=== PATIENT | female | born 1930 | race Caucasian/White ===

== ENCOUNTER 2017-05-06 05:16 | Emergency (ER) | payer OTHER, MEDICAID ==
[2017-05-06] MEDS: LEVALBUTEROL (NEB) 1.25 MG/0.5 ML AMP INH (05:25)
[2017-05-06] MEDS: IPRATROPIUM (NEB) 0.5 MG/2.5 ML AMP INH (05:26)
== END 2017-05-06 07:00 | disposition home or self-care (01) ==
LOC: E/R 05:16
DX: R06.02 Shortness of breath (principal); I10 Essential (primary) hypertension; J45.909 Unspecified asthma, uncomplicated; Z96.641 Presence of right artificial hip joint
CPT/HCPCS: 71045; 93005; 94644; 99284-25

== ENCOUNTER 2017-09-14 16:27 | Inpatient (IN) | payer OTHER, MEDICAID ==
[2017-09-14 16:40] LABS: ADD MAN DIFF? NO
[2017-09-14] MEDS: FUROSEMIDE 40 MG INJ IV (16:45)
[2017-09-14] MEDS: NITROGLYCERIN 2% 1 GM OINT PKT TD (16:45)
[2017-09-14 16:46] LABS: BASOPHIL # 0.1 10^3/ul (0.0-0.1); BASOPHILS % 1.1 % (0.0-2.0); EOSINOPHILS # 0.5 10^3/ul (0.0-0.5); EOSINOPHILS % 4.1 % (0.0-7.0); HEMATOCRIT 43.3 % (37.0-47.0); HEMOGLOBIN 13.7 g/dl (12.0-16.0); LYMPHOCYTES # 0.7 10^3/ul (0.8-2.9); LYMPHOCYTES % 6.4 % (15.0-51.0); MEAN CORPUSCULAR HEMOGLOBIN 31.4 pg (29.0-33.0); MEAN CORPUSCULAR HGB CONC 31.6 g/dl (32.0-37.0); MEAN CORPUSCULAR VOLUME 99.1 fl (82.0-101.0); MEAN PLATELET VOLUME 10.7 fl (7.4-10.4); MONOCYTE # 0.1 10^3/ul (0.3-0.9); MONOCYTES % 1.2 % (0.0-11.0); NEUTROPHIL # 9.8 10^3/ul (1.6-7.5); NEUTROPHILS % 86.6 % (39.0-77.0); PLATELET COUNT 303 10^3/UL (140-415); RED BLOOD COUNT 4.37 10^6/ul (4.20-5.40); RED CELL DISTRIBUTION WIDTH 13.2 % (11.5-14.5)
[2017-09-14 16:46] LABS: WHITE BLOOD COUNT 11.3 10^3/ul (4.8-10.8)
[2017-09-14] MEDS ORDERED: NITROGLYCERIN (SL) 0.4 MG TAB SL (17:00)
[2017-09-14 17:07] LABS: ANION GAP 19 (8-16); BLOOD UREA NITROGEN 16 mg/dl (7-20); CALCIUM 9.1 mg/dl (8.4-10.2); CARBON DIOXIDE 29 mmol/L (21-31); CHLORIDE 101 mmol/L (97-110); GLUCOSE 144 mg/dl (70-220); POTASSIUM 3.2 mmol/L (3.5-5.1); SODIUM 146 mmol/L (135-144)
[2017-09-14] MEDS: LEVALBUTEROL (NEB) 1.25 MG/0.5 ML AMP HHN ×2 (17:09→18:38)
[2017-09-14] MEDS: IPRATROPIUM (NEB) 0.5 MG/2.5 ML AMP HHN (17:09)
[2017-09-14 17:18] LABS: TROPONIN-I 0.024 ng/ml (0.000-0.120)
[2017-09-14] MEDS: METHYLPREDNISOLONE 125 MG INJ IV (18:42)
[2017-09-14] MEDS: POTASSIUM CHLORIDE (SR) 20 MEQ TAB PO (19:21)
[2017-09-14] MEDS: MAGNESIUM SULFATE 2 GM/50 ML 50 ML IVPB (19:21)
[2017-09-14] MEDS: ONDANSETRON 4 MG INJ IV (20:01)
[2017-09-14 20:52] LABS: AADO2 Arterial 152.7 mmHg (7.0-24.0); Arterial Base Excess -1.4 mmol/L (-3.0-3); Arterial Blood Gas Oxygen Sat 96.5 mmHG (95.0-100.0); Arterial COHb 0.2 % (0.0-3.0); Arterial HCO3 23.6 mmol/L (22.0-26.0); Arterial MetHb 0.3 % (0.0-1.5); Arterial Total Hemglobin 14.4 g/dl (12.0-18.0); Arterial pCO2 40.7 mmhg (35-45); MODE HFNC; Site Right Brachial
[2017-09-14] MEDS ORDERED: ACETAMINOPHEN 325 MG TAB PO (21:00)
[2017-09-14 23:33] LABS: CREATINE KINASE 101 IU/L (23-200)
[2017-09-14 23:45] LABS: CK INDEX 8.1; CK-MB 8.19 ng/ml (0.0-2.4)
[2017-09-14 23:48] LABS: TROPONIN-I 0.496 ng/ml (0.000-0.120)
[2017-09-15] MEDS ORDERED: ASPIRIN (EC) 325 MG TAB PO (00:41)
[2017-09-15] MEDS: CLOPIDOGREL 75 MG TAB PO (00:57)
[2017-09-15] MEDS: ALBUTEROL HFA 8 GM INHALER INH ×2 (01:00→04:41)
[2017-09-15] MEDS ORDERED: NACL 0.9% 3 ML SYG IV (01:00)
[2017-09-15] MEDS ORDERED: ACETAMINOPHEN 325 MG TAB PO (01:00)
[2017-09-15] MEDS ORDERED: NITROGLYCERIN (SL) 0.4 MG TAB SL (01:00)
[2017-09-15] MEDS ORDERED: ONDANSETRON 4 MG INJ IV ×2 (01:00→10:00)
[2017-09-15] MEDS: ALBUTEROL/IPRATROPIUM (NEB) 3 ML AMP HHN ×5 (01:22→19:54)
[2017-09-15 05:38] LABS: ADD MAN DIFF? NO
[2017-09-15 05:44] LABS: WHITE BLOOD COUNT 7.4 10^3/ul (4.8-10.8)
[2017-09-15 05:44] LABS: BASOPHILS % 0.3 % (0.0-2.0); EOSINOPHILS % 0.1 % (0.0-7.0); HEMATOCRIT 37.8 % (37.0-47.0); HEMOGLOBIN 12.6 g/dl (12.0-16.0); LYMPHOCYTES # 0.6 10^3/ul (0.8-2.9); LYMPHOCYTES % 8.6 % (15.0-51.0); MEAN CORPUSCULAR HEMOGLOBIN 32.4 pg (29.0-33.0); MEAN CORPUSCULAR HGB CONC 33.3 g/dl (32.0-37.0); MEAN CORPUSCULAR VOLUME 97.2 fl (82.0-101.0); MEAN PLATELET VOLUME 10.7 fl (7.4-10.4); MONOCYTE # 0.4 10^3/ul (0.3-0.9); MONOCYTES % 5.1 % (0.0-11.0); NEUTROPHIL # 6.3 10^3/ul (1.6-7.5); NEUTROPHILS % 85.4 % (39.0-77.0); PLATELET COUNT 284 10^3/UL (140-415); RED BLOOD COUNT 3.89 10^6/ul (4.20-5.40); RED CELL DISTRIBUTION WIDTH 13.2 % (11.5-14.5)
[2017-09-15 06:05] LABS: ALANINE AMINOTRANSFERASE 27 IU/L (13-69); ALBUMIN 3.6 g/dl (3.3-4.9); ALBUMIN/GLOBULIN RATIO 1.44; ALKALINE PHOSPHATASE 110 IU/L (42-121); ANION GAP 20 (8-16); ASPARTATE AMINO TRANSFERASE 28 IU/L (15-46); BILIRUBIN,INDIRECT 0.5 mg/dl (0-1.1); BILIRUBIN,TOTAL 0.5 mg/dl (0.2-1.3); BLOOD UREA NITROGEN 20 mg/dl (7-20); CALCIUM 8.9 mg/dl (8.4-10.2); CARBON DIOXIDE 28 mmol/L (21-31); CHLORIDE 99 mmol/L (97-110); CHOL/HDL RATIO 2.7 RATIO; CHOLESTEROL 191 mg/dl (100-200); CREATINE KINASE 139 IU/L (23-200); CREATININE 0.75 mg/dl (0.44-1.00); GLUCOSE 98 mg/dl (70-220); HDL CHOLESTEROL 70 mg/dl (33-92); LDL CHOLESTEROL,CALCULATED 107 mg/dl; POTASSIUM 3.3 mmol/L (3.5-5.1); SODIUM 144 mmol/L (135-144); TOTAL PROTEIN 6.1 g/dl (6.1-8.1); TRIGLYCERIDES 69 mg/dl (0-149)
[2017-09-15 06:21] LABS: HEMOGLOBIN A1C 6.1 % (0-5.9)
[2017-09-15 06:22] LABS: TROPONIN-I 0.676 ng/ml (0.000-0.120)
[2017-09-15] MEDS: ENOXAPARIN 40 MG/0.4 ML SYG SC (08:46)
[2017-09-15] MEDS: METHYLPREDNISOLONE 125 MG INJ IV ×4 (08:52→23:19)
[2017-09-15] MEDS ORDERED: ASPIRIN 81 MG TAB PO (09:00)
[2017-09-15] MEDS: POTASSIUM CHLORIDE 100 ML IVPB (09:30)
[2017-09-15] MEDS: SERTRALINE 50 MG TAB PO (09:30)
[2017-09-15] MEDS: ONDANSETRON 4 MG INJ IV (09:32)
[2017-09-15] MEDS: morphine 2 MG INJ IV (09:33)
[2017-09-15] MEDS ORDERED: HYDROCODONE/APAP (5/325) TAB PO (10:00)
[2017-09-15 11:08] LABS: B-TYPE NATRIURETIC PEPTIDE 4340 PG/ML (0-450)
[2017-09-15] MEDS: POTASSIUM CHLORIDE (SR) 20 MEQ TAB PO (11:30)
[2017-09-15] MEDS: FUROSEMIDE 20 MG INJ IV (12:02)
[2017-09-15 12:07] LABS: CREATINE KINASE 211 IU/L (23-200)
[2017-09-15 12:16] LABS: B-TYPE NATRIURETIC PEPTIDE 5170 PG/ML (0-450); CK INDEX 5.1
[2017-09-15 12:20] LABS: TROPONIN-I 0.412 ng/ml (0.000-0.120)
[2017-09-15] MEDS: BUDESONIDE (NEB) 0.5MG/2ML AMP HHN (19:59)
[2017-09-15] MEDS: MONTELUKAST 10 MG TAB PO (20:59)
[2017-09-15] MEDS: QUETIAPINE 25 MG TAB PO (20:59)
[2017-09-15] MEDS: ATORVASTATIN 40 MG TAB PO (20:59)
[2017-09-15] MEDS ORDERED: METHYLPREDNISOLONE 125 MG INJ IV (21:00)
[2017-09-16] MEDS: METHYLPREDNISOLONE 125 MG INJ IV ×3 (06:13→17:02)
[2017-09-16] MEDS: ALBUTEROL/IPRATROPIUM (NEB) 3 ML AMP HHN ×2 (08:12→15:27)
[2017-09-16] MEDS: BUDESONIDE (NEB) 0.5MG/2ML AMP HHN (08:22)
[2017-09-16 08:26] LABS: ADD MAN DIFF? NO
[2017-09-16] MEDS: SERTRALINE 50 MG TAB PO (08:26)
[2017-09-16] MEDS: CLOPIDOGREL 75 MG TAB PO (08:26)
[2017-09-16] MEDS: FUROSEMIDE 20 MG TAB PO (08:27)
[2017-09-16] MEDS: ENOXAPARIN 40 MG/0.4 ML SYG SC (08:30)
[2017-09-16 08:32] LABS: WHITE BLOOD COUNT 15.5 10^3/ul (4.8-10.8)
[2017-09-16 08:32] LABS: ABNORMAL IP MESSAGE 1; BASOPHILS % 0.1 % (0.0-2.0); HEMATOCRIT 39.5 % (37.0-47.0); HEMOGLOBIN 12.9 g/dl (12.0-16.0); LYMPHOCYTES # 0.5 10^3/ul (0.8-2.9); LYMPHOCYTES % 3.3 % (15.0-51.0); MEAN CORPUSCULAR HEMOGLOBIN 31.9 pg (29.0-33.0); MEAN CORPUSCULAR HGB CONC 32.7 g/dl (32.0-37.0); MEAN CORPUSCULAR VOLUME 97.8 fl (82.0-101.0); MEAN PLATELET VOLUME 10.8 fl (7.4-10.4); MONOCYTE # 0.5 10^3/ul (0.3-0.9); MONOCYTES % 3.1 % (0.0-11.0); NEUTROPHIL # 14.4 10^3/ul (1.6-7.5); NEUTROPHILS % 92.9 % (39.0-77.0); PLATELET COUNT 308 10^3/UL (140-415); RED BLOOD COUNT 4.04 10^6/ul (4.20-5.40); RED CELL DISTRIBUTION WIDTH 13.4 % (11.5-14.5)
[2017-09-16 08:35] LABS: POSITIVE DIFF @See below
[2017-09-16 08:48] LABS: ANION GAP 11 (8-16); BLOOD UREA NITROGEN 24 mg/dl (7-20); CALCIUM 8.9 mg/dl (8.4-10.2); CARBON DIOXIDE 33 mmol/L (21-31); CHLORIDE 99 mmol/L (97-110); CREATININE 0.69 mg/dl (0.44-1.00); GLUCOSE 118 mg/dl (70-220); MAGNESIUM 2.1 mg/dl (1.7-2.5); POTASSIUM 3.8 mmol/L (3.5-5.1); SODIUM 139 mmol/L (135-144)
[2017-09-16] MEDS ORDERED: morphine LIQ (10 MG/5 ML) CUP PO (17:00)
[2017-09-16] MEDS ORDERED: RANOLAZINE (SR) 500 MG TAB PO (21:00)
== END 2017-09-16 18:58 | disposition short-term general hospital (02) | DRG 190 ==
LOC: TEL 20:52 → E/R 16:27
DX: J44.1 Chronic obstructive pulmonary disease with (acute) exacerbation (principal); I21.4 Non-ST elevation (NSTEMI) myocardial infarction; I11.0 Hypertensive heart disease with heart failure; I50.9 Heart failure, unspecified; Z66 Do not resuscitate; F03.90 Unspecified dementia, unspecified severity, without behavioral disturbance, psychotic disturbance, mood disturbance, and anxiety
CPT/HCPCS: 36415; 36600; 71045; 80048; 80053; 80061; 82550; 82553; 82803; 82962; 83036; 83735; 83880; 84100; 84443; 84484; 85025; 93005; 93306; 94640; 94644; 94645; 94660; 94664; 96372; 96374; 96375; 96376; 99291-25